=== PATIENT | female | born 1960 | race Caucasian/White ===

== ENCOUNTER → 2016-12-28 11:33 | Outpatient (CLI) | payer MEDICARE ==
[~2016-12-28 11:33] MED LIST: ALBUTEROL1.25 MG/3 INH; ATROVENT 0.02%2.5 ML UPD; BENZONATATE200 MG PO; BREO ELLIPTA 21 EACH; CATAPRES0.1 MG PO; CYCLOBENZAPRINE10 MG PO; DALIRESP500 MCG PO; DOXYCYCLINE HY100 M2 PO; FLORAJEN3 CAPS460 MG PO; FLUTICASONE PRO16 GM NASAL; HYDROCODONE-APA1 TAB PO; JANUMET XR 50-1 EACH PO; METOPROLOL TAR100 M1 PO; OMEPRAZOLE40 MG PO; PREDNISONE10 MG PO; ROBITUSSIN DM 110 ML PO; SINGULAIR10 MG PO; ZOLOFT100 MG PO
[2016-12-29 00:16] VITALS: BMI 33.0
== END | disposition home or self-care (01) ==
LOC: D.RT 11:33
DX: J44.9 Chronic obstructive pulmonary disease, unspecified (principal)

== ENCOUNTER 2016-12-28 14:57 | Observation (INO) | payer MEDICARE ==
[~2016-12-28] VITALS: Ht 157.5 cm; Wt 81.8 kg
[2016-12-28 15:55] LABS: BASOPHILS 0.3 % (0.0-2.0); HEMATOCRIT 36.7 % (36.0-48.0); HEMOGLOBIN 11.5 g/dL (12-16); IMMATURE GRANULOCYTES 0.2 % (0-5); LYMPHOCYTES 33.3 % (15-50); MCH 23.7 pg (26.0-34.0); MCHC 31.3 g/dL (31.0-37.0); MCV 75.7 fL (80.0-100.0); MEAN PLATELET VOLUME 9.6 fL (7.4-10.4); MONOCYTES 5.1 % (2-11); NEUTROPHILS 59.1 % (40-80); PLATELET COUNT 222 10x3/uL (130-400); RBC 4.85 10x6/uL (4.00-5.40); RDW 14.8 % (11.5-14.5); WBC 6.1 10x3/uL (4.8-10.8)
[2016-12-28 16:09] LABS: ALBUMIN 3.8 g/dL (3.4-5.0); ALKALINE PHOSPHATASE 60 U/L (46-116); ALT (SGPT) 37 U/L (10-68); BILIRUBIN - TOTAL 0.38 mg/dL (0.2-1.3); CALC OSMOLALITY 281 mosm/kg (275-300); CALCIUM 9.1 mg/dL (8.5-10.1); CHLORIDE - SERUM 104 mmol/L (98-107); CREATININE - SERUM 0.8 mg/dL (0.6-1.3); GLUCOSE 123 mg/dL (74-106); POTASSIUM - SERUM 3.6 mmol/L (3.5-5.1); PROTEIN - SERUM 7.8 g/dL (6.4-8.2); SODIUM 141 mmol/L (136-145); UREA NITROGEN 13 mg/dL (7-18); eGFR NON AFRICAN AMERICAN 78 mL/min (90-120)
[2016-12-28 16:40] LABS: AMYLASE - SERUM 37 U/L (25-115); CREATINE KINASE 123 UL (21-215); LIPASE 180 U/L (73-393); PRO BNP 205 pg/mL (0-125)
[2016-12-28 16:42] LABS: TROPONIN-I < 0.017 ng/mL (0.000-0.060)
[2016-12-28] MEDS ORDERED: HYDROCODONE-APA1 TAB PO (18:56)
[2016-12-28] MEDS ORDERED: ZOLOFT100 MG PO (18:57)
[2016-12-28] MEDS ORDERED: METOPROLOL TAR100 M1 PO (18:57)
[2016-12-28] MEDS ORDERED: ALBUTEROL1.25 MG/3 INH (18:58)
[2016-12-28] MEDS ORDERED: CYCLOBENZAPRINE10 MG PO (18:58)
[2016-12-28] MEDS ORDERED: CATAPRES0.1 MG PO (18:59)
[2016-12-28] MEDS ORDERED: JANUMET XR 50-1 EACH PO (18:59)
[2016-12-28 19:00] VITALS: BP 155/87
[2016-12-28] MEDS ORDERED: BREO ELLIPTA 21 EACH (19:00)
[2016-12-28] MEDS ORDERED: FLUTICASONE PRO16 GM NASAL (19:00)
[2016-12-28] MEDS ORDERED: ATROVENT 0.02%2.5 ML UPD (19:00)
[2016-12-28] MEDS ORDERED: SINGULAIR10 MG PO (19:01)
[2016-12-28] MEDS ORDERED: BENZONATATE200 MG PO (19:01)
[2016-12-28] MEDS ORDERED: OMEPRAZOLE40 MG PO (19:01)
[2016-12-29 00:16] VITALS: BP 155/87; Ht 157.5 cm; Wt 81.8 kg
[2016-12-29 05:38] LABS: BASOPHILS 0.2 % (0.0-2.0); EOSINOPHILS 0 % (0-7); HEMATOCRIT 34.9 % (36.0-48.0); HEMOGLOBIN 10.9 g/dL (12-16); IMMATURE GRANULOCYTES 0.3 % (0-5); LYMPHOCYTES 12.2 % (15-50); MCH 23.6 pg (26.0-34.0); MCHC 31.2 g/dL (31.0-37.0); MCV 75.5 fL (80.0-100.0); MEAN PLATELET VOLUME 10.1 fL (7.4-10.4); MONOCYTES 1.4 % (2-11); NEUTROPHILS 85.9 % (40-80); PLATELET COUNT 214 10x3/uL (130-400); RBC 4.62 10x6/uL (4.00-5.40); RDW 14.8 % (11.5-14.5); WBC 6.3 10x3/uL (4.8-10.8)
[2016-12-29 06:02] LABS: CALCIUM 9.5 mg/dL (8.5-10.1); CARBON DIOXIDE 26.7 mmol/L (21.0-32.0); CREATININE - SERUM 0.9 mg/dL (0.6-1.3); POTASSIUM - SERUM 3.7 mmol/L (3.5-5.1)
--- NOTE | 2016-12-29 07:30 | NUR ---
RECIEVED PT DURING WALKING ROUNDS, PT RESTING IN BED WITH COMPLAINTS OF A HEADACHE OF AN 8 ON A SCALE OF 1-10. INFOMRED PT THAT I WAS UNABLE TO GIVE MEDICATION AT THIS TIME, BUT THAT I WOULD SPEAK TO THE DOCTOR ABOUT MEDICATION. ASSESSMENT DONE PER FLOWSHEET. BED IN LOW POSITION AND CALL LIGHT WITHIN REACH. WILL CONTINUE TO MONITOR.
[2016-12-29 08:40] VITALS: BP 130/92
--- NOTE | 2016-12-29 09:19 | NUR ---
PATIENT IN MID MILIAN POSITION ALERT. NO SIGNS OF DISTRESS NOTED. PRIMARY NURSE PAN BLAKE PRESENT. SIDE RAILS UP X2. BED IN LOW POSITION. CALL LIGHT IN REACH.
--- NOTE | 2016-12-29 11:45 | NUR ---
SPOKE WITH DR. PISANO ABOUT MEDICATION FOR PT HEADACHE, WAS INFORMED THAT ORDERS WOULD BE PLACED NEEDED. PT STATED THAT HEADAHCE HAD NOT GONE AWAY, IS AWARE OF THIS. BED IN LOW POSITION AND CALL LIGHT WITHIN REACH. WILL CONTINUE TO MONITOR.
[2016-12-29 12:34] VITALS: BP 125/72
[2016-12-29 16:34] VITALS: BP 139/88
[2016-12-29 17:38] LABS: APPEARANCE CLEAR (CLEAR); BILIRUBIN NEGATIVE (NEGATIVE); COLOR YELLOW (YELLOW); GLUCOSE 500 mg/dL (NEGATIVE); KETONE NEGATIVE (NEGATIVE); LEUKOCYTE ESTERASE NEGATIVE (NEGATIVE); NITRITE NEGATIVE (NEGATIVE); PROTEIN NEGATIVE (NEGATIVE); UROBILINOGEN NORMAL (NORMAL)
--- NOTE | 2016-12-29 19:58 | NUR ---
PATIENT COMPLAINT OF HEADACHE 03/09. PATIENT WOULD LIKE FLEXERIL WITH HER 2100 MEDS. BROUGHT PATIENT ICE PER HER REQUEST. BED IN LOWEST POSITION AND CALL LIGHT WITHIN REACH. ENCOURAGED PATIENT TO CALL IF SHE HAS FURTHER NEEDS.
[2016-12-29 21:36] VITALS: BP 128/81
[2016-12-30 05:51] LABS: BASOPHILS 0.1 % (0.0-2.0); EOSINOPHILS 0 % (0-7); HEMATOCRIT 35.9 % (36.0-48.0); HEMOGLOBIN 11.3 g/dL (12-16); IMMATURE GRANULOCYTES 0.3 % (0-5); LYMPHOCYTES 6.4 % (15-50); MCH 24.2 pg (26.0-34.0); MCHC 31.5 g/dL (31.0-37.0); MCV 76.9 fL (80.0-100.0); MEAN PLATELET VOLUME 10.1 fL (7.4-10.4); MONOCYTES 3.6 % (2-11); NEUTROPHILS 89.6 % (40-80); PLATELET COUNT 250 10x3/uL (130-400); RBC 4.67 10x6/uL (4.00-5.40); RDW 15.2 % (11.5-14.5)
[2016-12-30 06:01] LABS: WBC 13.6 10x3/uL (4.8-10.8)
[2016-12-30 06:15] LABS: ALBUMIN 3.3 g/dL (3.4-5.0); ALKALINE PHOSPHATASE 54 U/L (46-116); ALT (SGPT) 31 U/L (10-68); CALCIUM 9.1 mg/dL (8.5-10.1); CARBON DIOXIDE 29.7 mmol/L (21.0-32.0); CHLORIDE - SERUM 102 mmol/L (98-107); CREATININE - SERUM 0.8 mg/dL (0.6-1.3); GLUCOSE 234 mg/dL (74-106); POTASSIUM - SERUM 4.2 mmol/L (3.5-5.1); SODIUM 141 mmol/L (136-145); eGFR NON AFRICAN AMERICAN 78 mL/min (90-120)
[2016-12-30 06:17] LABS: CALC OSMOLALITY 290 mosm/kg (275-300); UREA NITROGEN 19 mg/dL (7-18)
--- NOTE | 2016-12-30 07:30 | NUR ---
RECIEVED PT DURING WALKING ROUNDS. PT RESTING COMFORTABLY IN BED WITH COMPLAINTS OF PAIN OF PAIN IN HER BACK OF A 3 ON A SCALE OF 1-10. ASSESSMENT DONE PER FLOWSHEET. BED IN LOW POSITION AND CALL LIGHT WITHIN REACH. WILL CONTINUE TO MONITOR.
--- NOTE | 2016-12-30 07:40 | NUR ---
PATIENT ALERT IN MID MILIAN POSITION. RESPIRATIONS EVEN AND UNLABORED. SIDE RAILS UP X2. BED IN LOW POSITION. CALL LIGHT IN REACH.
[2016-12-30 08:18] VITALS: BP 165/96
--- NOTE | 2016-12-30 09:45 | NUR ---
PT RETURNED TO ROOM AT THIS TIME FROM CT, MEDICATIONS ADMINSTERED PER ORDER. PT TOLERATING WELL. BED IN LOW POSITION AND CALL LIGHT WITHIN REACH. WILL CONTINUE TO MONITOR.
[2016-12-30 11:53] VITALS: BP 149/97
[2016-12-30 16:15] VITALS: BP 140/88; BP 152/94
--- NOTE | 2016-12-30 19:47 | NUR ---
PATIENT REQUESTED FLEXERIL WITH HER 2100 MEDS AND DENIES OTHER NEEDS AT THIS TIME. BED IN LOWEST POSITION AND CALL LIGHT WITHIN REACH. ENCOURAGED PATIENT TO CALL IF SHE HAS FURTHER NEEDS.
[2016-12-30 22:19] VITALS: BP 174/95
[2016-12-31] VITALS: BP 157/101
--- NOTE | 2016-12-31 07:00 | NUR ---
REPORT RECEIVED FROM SYNCHRONIZER NURSE. CALL LIGHT IN REACH.
[2016-12-31 07:50] VITALS: BP 144/73
--- NOTE | 2016-12-31 08:40 | NUR ---
ASSESSMENT COMPLETED. SCDs TO BLE. CALL LIGHT IN REACH. WILL CONTINUE WITH PLAN OF CARE.
[2016-12-31 10:06] LABS: BASOPHILS 0.1 % (0.0-2.0); EOSINOPHILS 0.1 % (0-7); HEMATOCRIT 35.6 % (36.0-48.0); HEMOGLOBIN 10.8 g/dL (12-16); IMMATURE GRANULOCYTES 0.3 % (0-5); LYMPHOCYTES 19.8 % (15-50); MCH 23.7 pg (26.0-34.0); MCHC 30.3 g/dL (31.0-37.0); MCV 78.1 fL (80.0-100.0); MEAN PLATELET VOLUME 10.5 fL (7.4-10.4); MONOCYTES 10.1 % (2-11); NEUTROPHILS 69.6 % (40-80); PLATELET COUNT 264 10x3/uL (130-400); RBC 4.56 10x6/uL (4.00-5.40); RDW 15.6 % (11.5-14.5); WBC 10.4 10x3/uL (4.8-10.8)
[2016-12-31 10:14] LABS: ALBUMIN 3.4 g/dL (3.4-5.0); ALKALINE PHOSPHATASE 54 U/L (46-116); ALT (SGPT) 27 U/L (10-68); BILIRUBIN - TOTAL 0.15 mg/dL (0.2-1.3); CALCIUM 8.7 mg/dL (8.5-10.1); CARBON DIOXIDE 32.5 mmol/L (21.0-32.0); CHLORIDE - SERUM 102 mmol/L (98-107); CREATININE - SERUM 0.8 mg/dL (0.6-1.3); POTASSIUM - SERUM 3.8 mmol/L (3.5-5.1); PROTEIN - SERUM 6.6 g/dL (6.4-8.2); SODIUM 141 mmol/L (136-145); eGFR NON AFRICAN AMERICAN 78 mL/min (90-120)
[2016-12-31 10:20] LABS: CALC OSMOLALITY 285 mosm/kg (275-300); GLUCOSE 118 mg/dL (74-106); UREA NITROGEN 25 mg/dL (7-18)
--- NOTE | 2016-12-31 10:52 | NUR ---
VALERIANO PO WITH AM MEDS ADMINISTERED. CALL LIGHT IN REACH.
--- NOTE | 2016-12-31 10:54 | NUR ---
Patient Name: SOPHIA PRATT Admission Status: ER Accout number: [id number] Admission Date: 12-28-2016 : 1960 Admission Diagnosis: Attending: SHELTON Current LOS: 3 Anticipated DC Date: 01-03-2017 Planned Disposition: Home Primary Insurance: [employer] CHOICE PPO MCR [employer] Discharge Planning Comments: CM MET WITH PATIENT REGARDING D/C NEEDS AND PLANS. PATIENT STATED SHE LIVES ALONE AND THERE ARE NO STEPS OR STAIRS AT HER HOME. PATIENT STATED SHE IS INDEPENDENT WITH HER CARE AND HAS OXYGEN HS, NEBULIZER, C-PAP, CANE, BUILT IN SHOWER CHAIR, WHEELCHAIR, AND STATED SHE NEEDS PORTABLE OXYGEN. PATIENTS PCP IS DR. PISANO AND SHE USES [facility] ON [facility] FOR HER PHARMACY. PATIENT DOES USE A MAIL ORDER FOR HER REGULAR SCRIPTS. PATIENT HAS NEVER HAD HOME HEALTH AND DOES NOT WANT IT AT DISCHARGE. PATIENTS DAUGHTER (ZAC MCNAMARA) WILL DRIVE HER HOME AT DISCHARGE. CM WILL CONTINUE TO FOLLOW PATIENT WITH D/C NEEDS AND PLANS. PCP DR. PISANO [facility] [address] [place] [address] [phone] FAITH MCNAMARA (DAUGHTER) [phone] Second Facing Baster: Aliyah Torres Is the patient Alert and Oriented? Yes 0 * How many steps to enter\exit or inside your home? 0 0 * PCP DR. PISANO 0 * Pharmacy [facility] ON [address] [place] [address] 0 * Preadmission Environment Home Alone 0 * ADLs Independent 0 * Equipment Cane CPAP Nebulizer Oxygen Shower Chair Wheelchair 0 * List name and contact numbers for known caregivers / representatives who currently or will assist patient after discharge: FAITH MCNAMARA (DAUGHTER) [phone] 0 * Community resources currently utilized None 0 * Additional services required to return to the preadmission environment? Yes 0 * Can the patient safely return to the preadmission environment? Yes 0 * Has this patient been hospitalized within the prior 30 days at any hospital? No 0 Grand Total: 0
[2016-12-31 12:10] VITALS: BP 145/100
--- NOTE | 2016-12-31 12:40 | NUR ---
SITTING UP IN BED EATING LUNCH AT THIS TIME. CALL LIGHT IN REACH.
[2016-12-31] MEDS ORDERED: DALIRESP500 MCG PO (13:07)
[2016-12-31] MEDS ORDERED: ROBITUSSIN DM 110 ML PO (13:07)
[2016-12-31] MEDS ORDERED: FLORAJEN3 CAPS460 MG PO (13:07)
[2016-12-31] MEDS ORDERED: PREDNISONE10 MG PO (13:08)
[2016-12-31] MEDS ORDERED: DOXYCYCLINE HY100 M2 PO (13:09)
--- NOTE | 2016-12-31 14:17 | NUR ---
IV DC'D WITH TIP INTACT.
--- NOTE | 2016-12-31 14:31 | NUR ---
CM REASSESSMENT NOTE: PATIENT IS DISCHARGING HOME TODAY-FAMILY DRIVING HER. PATIENT DENIED HOME HEALTH OR ANY OTHER NEEDS.
--- NOTE | 2016-12-31 14:48 | NUR ---
DISCHARGE INSTRUCTIONS GIVEN TO PT DEMONDSTRATE UNDERSTANDING.
--- NOTE | 2016-12-31 14:53 | NUR ---
AFTERNOON MEDS ADMINISTERED WITH NORCO. DC INSTRUCTIONS EXPLAINED TO PATIENT. VERBALIZED UNDERSTANDING. STATED SHE WILL HAVE [employer] SEND DR. PISANO A REFILL REQUEST FOR TESSALON PERLES AND CLONIDINE.
--- NOTE | 2016-12-31 15:37 | NUR ---
DC'D TO VEHICLE VIA WC WITH DAUGHTER.
[2017-01-01 06:14] LABS: IMMUNOGLOBULIN E 178 IU/mL (0-100)
[2017-01-01 08:23] LABS: IMMUNOGLOBULIN A 309 mg/dL (87-352); IMMUNOGLOBULIN G 967 mg/dL (700-1600)
--- NOTE | 2017-01-11 10:19 | EC ---
PATIENT:OSPHIA PRATT DATE OF SERVICE: 12/28/16 SEX: F MEDICAL RECORD: [id number] DATE OF : 56 LOCATION:[id number] AGE OF PATIENT: 56 ADMISSION DATE: 12/28/16 REFERRING PHYSICIAN: INTERPRETING PHYSICIAN: YVONNE FERREIRA MD ECHOCARDIOGRAM REPORT ECHO CHARGES 4 ECHO COMPLETE CLINICAL DIAGNOSIS: DYSPNEA ECHOCARDIOGRAPHIC MEASUREMENTS (adult normal given) AC root (d.<3.7cm) 3.0 LV Septum d (<1.2 cm> 1.4 Valve Excursion 1.7 LV Septum (systole) 2.0 Left Atria (s.<4.0cm> 4.2 LVPW d(<1.2cm) 1.4 RV (d.<2.3cm) 2.7 LVPW (sytole) 2.0 LV diastole(<5.6CM) 4.4 MV E-F(>70mm/sec) LV systole 2.1 LVOT Diameter 1.7 MV exc.(>10mm) Est.ejection fraction (50-75%) Pericardial Effusion N DOPPLER: LVIT A 115 E 89.0 LA RVSP 44.0 LVOT 125 AOP1/2T Asc. Ao 186 RVOT 66.0 RA PA 97.0 AV Gradient Peak 14.0 AV Mean 8.0 AV Area 1.5 MV Gradient Peak 6.8 MV Mean 2.6 MV Area COMMENTS: Rn Postpartum: Jeimy ANTONIOOE Product Design Engineer:1 Dr. Ferreira TAPE# PACS DATE OF SERVICE: 12/29/2016 Echocardiogram FINDINGS: 1. Left ventricular chamber size is within normal limits. Left ventricular systolic function is normal. Overall ejection fraction estimated at 65%. 2. Left atrium is enlarged at 4.2 cm. Right atrium and right ventricular chamber sizes are as well mildly dilated. 3. Valvular structures have normal structure and motion. ECHOCARDIOGRAM REPORT [id number] SOPHIA PRATT 4. Doppler interrogation reveals mild mitral regurgitation, mild tricuspid regurgitation, no other valvular insufficiency or stenosis and pulmonary systolic pressure is mildly elevated, estimated at 44 mmHg. 5. No evidence of pericardial effusion or left ventricular thrombus. TRANSINT:[id number] Voice Confirmation ID: [id number] DOCUMENT ID: [id number] 01/02/2017 Edited to correct date of service, [email or web address]. YVONNE FERREIRA MD at 1019 CC: [id number] DICTATION DATE: 12/31/16 0943 FELT HANGER: 12/31/16 1139 DIS IN 12/31/16 [place] [id number] [place] [address]
== END 2016-12-31 15:37 | disposition home or self-care (01) ==
LOC: D.ER 14:57 → D.MS 17:13 → OBSVTIME 17:13 → D.MS 17:13
PROVIDERS: Family Medicine; Internal Medicine Pulmonary Disease; ADMIT Family Medicine
DX: J44.0 Chronic obstructive pulmonary disease with (acute) lower respiratory infection (principal); J44.9 Chronic obstructive pulmonary disease, unspecified; J20.9 Acute bronchitis, unspecified; J45.901 Unspecified asthma with (acute) exacerbation; E11.9 Type 2 diabetes mellitus without complications; G47.33 Obstructive sleep apnea (adult) (pediatric); K58.0 Irritable bowel syndrome with diarrhea; I50.9 Heart failure, unspecified; K76.0 Fatty (change of) liver, not elsewhere classified; K21.9 Gastro-esophageal reflux disease without esophagitis; M79.7 Fibromyalgia; K27.9 Peptic ulcer, site unspecified, unspecified as acute or chronic, without hemorrhage or perforation; F32.9 Major depressive disorder, single episode, unspecified; C50.919 Malignant neoplasm of unspecified site of unspecified female breast